=== PATIENT | female | born 2000 | race Caucasian/White ===

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

== ENCOUNTER 2022-01-06 13:10 | Outpatient (CLI) | payer BC, SELFPAY ==
--- NOTE | 2022-01-06 13:14 | RAD_ITS ---
STUDY: X-RAY - LEFT HAND REASON FOR EXAM: Third metacarpal pain for 2 weeks, weakness, no specific injury. TECHNIQUE: 3 view(s) of the hand. COMPARISON: None. FINDINGS: Normal radiocarpal articulation. Normal distal radioulnar joint. Normal visualized carpal bones. Normal carpal articulations Normal carpometacarpal articulation of the thumb. Normal second through fifth carpometacarpal joints. Normal metacarpi. Normal metacarpophalangeal joint of the thumb. Normal interphalangeal joint of the thumb. Normal proximal and distal phalanges of the thumb. Normal metacarpophalangeal joints of the second through fifth fingers. Normal proximal and distal interphalangeal joints of the second through fifth fingers. Normal phalanges of the second through fifth fingers. The soft tissue structures are unremarkable. RAD/Hand Min 3 Views IMPRESSION: Normal x-ray examination of the left hand. Electronically Signed: Brett Preciado MD at 14:21 EST ,
== END 2022-01-06 23:59 | disposition home or self-care (01) ==
PROVIDERS: Referring Provider Physician Assistant Surgical; Visit Provider Physician Assistant Surgical
DX: S66.912A Strain of unspecified muscle, fascia and tendon at wrist and hand level, left hand, initial encounter (principal)
CPT/HCPCS: 73130

== ENCOUNTER 2022-12-31 13:28 | Emergency (ER) | payer BC, SELFPAY ==
[2022-12-31 13:28] VITALS: BP 153/94; PULSE 116; RESP 16; TEMP 36.6; O2SAT 98; BMI 32.9
[2022-12-31 13:56] LABS: Absolute Lymphocyte Count 3.16 X10^3/uL (0.83-4.51); Absolute Neutrophil Count 4.7 X10^3/uL (2.0-7.7); Basophil# 0.04 X10^3/uL; Basophil% 0.5 % (0-1); Eosinophil# 0.11 X10^3/uL; Eosinophils% 1.3 % (0-5); Hematocrit 36.7 % (37-47); Lymphocyte # 3.16 X10^3/ul (0.83-4.51); Lymphocyte % 36.2 % (19-41); Mean Corp Hgb Conc 32.7 g/dL (32-36); Mean Corpuscular Volume 82.5 fL (81-99); Mean Platelet Vol. 9.4 fl (6.2-12.0); Monocyte# 0.68 X10^3/uL; Monocyte% 7.8 % (0-10); NRBC Flagged by Analyzer 0 % (0-5); Neutrophil # 4.71 X10^3/uL (2.7-7.7); Platelet Count 327 K/mm3 (150-450); RBC Distribution Width CV 13.8 % (11.6-14.6); RBC Distribution Width SD 40.4 fl (35.1-43.9); Red Blood Count 4.45 M/mm3 (4.2-5.4); White Blood Count 8.7 K/mm3 (4.4-11.0)
[2022-12-31 14:17] LABS: Anion Gap 8 (5-15); BUN 9 mg/dL (7-18); BUN/Creat Ratio 13.2 RATIO (10-20); Calcium,Total 8.7 mg/dL (8.5-10.1); Chloride 109 mmol/L (98-107); Creatinine, Serum 0.68 mg/dL (0.55-1.02); EST Glomerular Filtration Rate 116 mL/min (>60); Est Glom Filt Rate - Afr Amer 140 mL/min (>60); Estimated Creatinine Clearance 123.54 ml/min; Glucose 118 mg/dL (74-106); Potassium 3.6 mmol/L (3.5-5.1); Sodium Level 140 mmol/L (136-145); Troponin-I HS 3 pg/mL (3.0-54.0)
--- NOTE | 2022-12-31 14:20 | RAD_ITS ---
EXAM: XR CHEST, 1 VIEW CLINICAL INDICATION: chest pain TECHNIQUE: Frontal view of the chest. This report was created using Booster report generation technology. COMPARISON: None. FINDINGS: LUNGS AND PLEURAL SPACES: Unremarkable. No consolidation or edema. No pneumothorax. No effusion. HEART: Unremarkable. Cardiac silhouette not enlarged. MEDIASTINUM: Central airways and mediastinal contour are unremarkable. BONES/JOINTS: Unremarkable. SOFT TISSUES: Unremarkable. RAD/Chest 1 View (Portable) IMPRESSION: No radiographic evidence of acute cardiopulmonary disease. Electronically Signed: Josh Cevallos MD at 15:06 [facility] ,
--- NOTE | 2022-12-31 15:30 | EDS_ITS ---
HPI History of Present Illness Chief Complaint: Chest Pain Narrative Narrative: 22-year-old female presenting with chest pain on the left side. It started yesterday. It is sharp and radiates to the left side of her chest to her back. She does feel short of breath, but states this is more so because she cannot take a deep breath. Patient is on oral control but has no other DVT/PE risk factors. No cardiac history. She states she has exercise-induced asthma but does not exercise and does not feel like she is having asthma intact states Tylenol is not helping her pain. PE Risk Factors: Negative for Recent Travel/Surgery, Recent Immobilization, Prior DVT or PE or Cancer [facility] Medical History Anemia Home Medications albuterol sulfate 90 mcg/actuation aerosol inhaler (Ventolin HFA) 1 - 2 puff inhalation Q4H PRN PRN Wheezing ##1 10/24/21 [Rx Last Taken Unknown] dexamethasone 6 mg tablet 12 mg PO .once #4 tabs 10/24/21 [Rx Last Taken Unknown] sertraline 100 mg tablet 100 mg PO DAILY 10/24/21 [History Last Taken Unknown] sertraline 50 mg tablet 50 mg PO DAILY 10/24/21 [History Last Taken Unknown] Allergy/AdvReac Type Severity Reaction Status Date / Time amoxicillin Allergy Hives Verified 12/31/22 13:30 Penicillins [PCN] Allergy Hives Verified 12/31/22 13:30 Social History Smoking Status: Never smoker [facility] ED Constitutional Constitutional ED: Denies chills, fever(s) or sweats Eyes Eyes: Denies blurry vision or change in vision ENT ENT ED: Denies ear pain or sore throat Cardiovascular Cardiovascular: Reports chest pain; Denies palpitations or racing heartbeat Respiratory/Chest Respiratory/Chest: Reports dyspnea; Denies cough or sputum Gastrointestinal Gastrointestinal: Denies abdominal pain, constipation, diarrhea, nausea or vom iting Genitourinary Genitourinary ED: Denies dysuria, hematuria or urinary frequency Musculoskeletal Musculoskeletal: Denies arthralgias, myalgias or neck pain Integumentary Denies abscess, Abrasions or rash Neurologic Neurologic: Denies headache(s), paresthesias or weakness Psychiatric Psychiatric: Denies anxiety, depression, suicidal ideation or suicidal thoughts Endocrine Endocrinology: Denies polydipsia or polyuria EXAM Physical Exam Const Vital Signs: 12/31/22 13:28 12/31/22 14:27 12/31/22 16:06 Temperature 97.8 F Temperature Source Temporal Pulse Rate 116 H 86 Respiratory Rate 16 18 Respiratory Effort Normal Non-Labored Blood Pressure 153/94 H 133/83 H Blood Pressure Mean 113 99 Pulse Ox 98 97 Oxygen Delivery Method Room Air Room Air General Appearance ED: Negative for pallor HEENT Reports normocephalic, head/scalp atraumatic and moist mucous membranes Eyes PERRL and EOMs intact bilaterally Neck no lymphadenopathy and supple Chest Wall inspection of chest normal and palpation of chest normal Resp normal respiratory effort and clear to auscultation bilaterally Auscultation: Negative for rales, rhonchi or wheezes Cardio regular rate and regular rhythm GI normal to inspection, nondistended, normoactive bowel sounds and non-distended Auscultation: normoactive bowel sounds Palpation: soft Narrative: Deferred Extremity normal to inspection General Extremety ED: Yes edema and tenderness General Extremity: edema Neuro oriented x3 and CN's II-XII intact bilaterally Sensorium / Orientation: alert Motor Exam: strength 5/5 throughout Psych mental status grossly normal Attitude: No agitated Skin no rashes or lesions noted and no wounds General Skin Exam: Negative for jaundice or pallor Heart Score History: Slightly/Non-Suspicious ECG: Normal Age: </= 45 years Risk Factors: No Risk Factors Troponin: </= Normal Limit Score: 0 MDM MDM MDM Narrative Medical decision making narrative: Patient presenting with left-sided chest pain. Radiates straight to the back on the same side. Differential diagnosis at this point includes but is not limited to ACS, PE, aortic dissection, pneumonia, Boerhaave's, pneumothorax, muscle strain, costochondritis. CBC to assess white blood cell count, hemoglobin, differential, BMP to assess renal function, electrolytes, glucose, anion gap. Patient on control and not concern for . Chest x-ray shows no acute cardiopulmonary process on my interpretation. Radiology services and agrees. EKG shows sinus tachycardia with a ventricular rate of 102 bpm without sign of ischemic change. Cannot PERC out the patient because she is tachycardic. She is also on control. Will obtain a D-dimer. CBC shows no leukocytosis. Hemoglobin hematocrit are stable. Platelets normal. Renal function electrolytes within normal limits. Glucose slightly elevated 118 without anion gap. CBC shows a normal white blood cell count at 8.7. Hemoglobin stable at 12. Platelets normal at 327. Renal function electrolytes are normal. High-sensitivity troponin is 3. Patient has had pain in her chest since yesterday and I do not believe she is a delta troponin. D-dimer is negative. Patient not hypoxic, tachypneic. At this point I suspect her pain is musculoskeletal. She is to use Tylenol, ibuprofen in alternating doses for pain. She can use ice and heat. Follow-up with her PCP. Impression: 1. Chest wall pain Lab Data Attestation: I reviewed the patient's lab results. Labs: Laboratory Results - last 24 hr 12/31/22 12/31/22 12/31/22 12:15 12:15 16:00 WBC 8.7 RBC 4.45 Hgb 12.0 Hct 36.7 L MCV 82.5 MCH 27.0 MCHC 32.7 RDW Std Deviation 40.4 RDW Coeff of Jazmine 13.8 Plt Count 327 MPV 9.4 Immature Gran % (Auto) 0.200 Neut % (Auto) 54.0 Lymph % (Auto) 36.2 Grayson % (Auto) 7.8 Eos % (Auto) 1.3 Baso % (Auto) 0.5 Absolute Neuts (auto) 4.7 Absolute Lymphs (auto) 3.16 Nucleated RBC % 0 D-Dimer Quant (PE/DVT) 0.27 Sodium 140 Potassium 3.6 Chloride 109 H Carbon Dioxide 23.0 Anion Gap 8 BUN 9 Creatinine 0.68 Estim Creat Clear Calc 123.54 Est GFR (MDRD) Af Amer 140 Est GFR (MDRD) Non-Af 116 BUN/Creatinine Ratio 13.2 Glucose 118 H Calcium 8.7 Troponin I High Sens 3 Radiography Diagnostic Testing: Clinical Impression(s) from Imaging Studies Chest X-Ray 12/31/22 14:20 IMPRESSION: No radiographic evidence of acute cardiopulmonary disease. Electronically Signed: Josh Cevallos MD at 15:06 EST , Discharge Plan Triage Chief Complaint: Chest Pain ED Provider: Travis Xavier Dx/Rx/DC Orders Prescriptions: No Action sertraline 100 mg tablet 100 mg PO DAILY sertraline 50 mg tablet 50 mg PO DAILY albuterol sulfate [Ventolin HFA] 1 INHALER inhaler 1 - 2 puff inhalation Q4H PRN PRN (Reason: Wheezing) Qty: 1 0RF dexamethasone 6 mg tablet 12 mg PO .once Qty: 4 0RF Rx Instructions: repeat 12mg PO in 3 days Primary Care Provider: Niranjan Elias Referrals: Niranjan Elias MD [Primary Care Provider] -
[2022-12-31 16:06] VITALS: BP 133/83; PULSE 86; RESP 18; O2SAT 97
[2022-12-31 16:18] LABS: D-Dimer Quantitative (DVT/PE) 0.27 FEU/ug/m (0.27-0.49)
== END 2022-12-31 16:47 | disposition home or self-care (01) ==
PROVIDERS: Emergency Provider Student in an Organized Health Care Education/Training Program; PCP Family Medicine; Visit Provider Student in an Organized Health Care Education/Training Program
DX: R07.89 Other chest pain (principal); J45.990 Exercise induced bronchospasm; Z79.52 Long term (current) use of systemic steroids; Z79.3 Long term (current) use of hormonal contraceptives
CPT/HCPCS: 71045; 80048; 84484; 85025; 85379; 93005; 99283; A4216

== ENCOUNTER → 2025-01-20 | Outpatient (CLI) | payer BC, SELFPAY ==
[2025-01-20 10:48] LABS: AST(SGOT) 14 U/L (<=31); Alanine Aminotransfer ALT/SGPT 16 U/L (<=34); Anion Gap 14 (5-15); BUN 10 mg/dL (4-19); BUN/Creat Ratio 16.5 RATIO (10-20); Chloride 105 mmol/L (98-108); Cholesterol 176 mg/dL (<=190); Creatinine, Serum 0.61 mg/dL (0.70-1.20); EST Glomerular Filtration Rate 130 (>60); Estradiol 23.5 pg/mL; Follicle Stimulating Hormone 3.7 mIU/mL; Glucose 92 mg/dL (70-99); High Density Lipoprotein 54 mg/dL; Low Density Lipoprotein Calc. 95 mg/dL; Luteinizing Hormone 10.5 mIU/mL; Potassium 4.4 mmol/L (3.3-5.1); Sodium Level 139 mmol/L (133-145); Triglycerides 137 mg/dL; Very Low Density Lipoprotein 27 mg/dL (5-40); cholesterol:hdl ratio screen 3.28
[2025-01-29 11:08] LABS: Insulin Level 39.9 uIU/mL (2.6-24.9); PROLACTIN 19.9 ng/mL (4.8-33.4); Testosterone, % Free 1.41 % (0.50-2.80); Testosterone, Free 0.49 ng/dL (0.10-0.85); Testosterone, Total 35 ng/dL (13-71); Thyroglobulin Antibody 1.2 IU/mL (0.0-0.9); Thyroid Peroxidase AB 16 IU/mL (0-34); Thyroid Stim Immunoglob 4.69 IU/L (0.00-0.55)
== END | disposition home or self-care (01) ==
PROVIDERS: PCP Family Medicine; Referring Provider Internal Medicine Endocrinology, Diabetes & Metabolism; Visit Provider Internal Medicine Endocrinology, Diabetes & Metabolism
DX: E28.2 Polycystic ovarian syndrome (principal); Z83.49 Family history of other endocrine, nutritional and metabolic diseases; R63.5 Abnormal weight gain
CPT/HCPCS: 36415; 80048; 80061; 82157; 82627; 82670; 83001; 83002; 83525; 84146; 84402; 84403; 84439; 84443; 84445; 84450; 84460; 86376; 86800; 82626

== ENCOUNTER → 2025-01-22 | Outpatient (CLI) | payer BC, SELFPAY ==
[2025-01-22 10:22] LABS: CORTISOL AM 1.47 ug/dL (6.02-18.40)
== END | disposition home or self-care (01) ==
LOC: LAB 07:39
PROVIDERS: PCP Family Medicine; Referring Provider Internal Medicine Endocrinology, Diabetes & Metabolism; Visit Provider Internal Medicine Endocrinology, Diabetes & Metabolism
DX: R63.5 Abnormal weight gain (principal)
CPT/HCPCS: 36415; 82157; 82533